=== PATIENT | female | born 1960 | race Caucasian/White ===

== ENCOUNTER → 2023-05-13 09:09 | Outpatient (REF) | payer OTHER, SELFPAY | LOC: MRI 3T 09:09 | PROVIDERS: ATTENDING PHYSICIAN Physician Assistant; FAMILY PHYSICIAN Internal Medicine | DX: M25.511 Pain in right shoulder (principal) | CPT/HCPCS: 73221 ==

== ENCOUNTER → 2023-11-22 09:56 | Outpatient (REF) | payer OTHER, SELFPAY | LOC: RAD 09:56 | PROVIDERS: ATTENDING PHYSICIAN Physician Assistant; FAMILY PHYSICIAN Internal Medicine | DX: R10.11 Right upper quadrant pain (principal) | CPT/HCPCS: 76700 ==

== ENCOUNTER → 2023-12-10 06:28 | Day surgery (SDC) | payer OTHER, SELFPAY ==
[2023-12-10 10:57] LABS: COVID-19 Antigen Negative (Negative)
== END ==
LOC: GI 06:28
PROVIDERS: ATTENDING PHYSICIAN Internal Medicine Gastroenterology
DX: K20.90 Esophagitis, unspecified without bleeding (principal); K22.89 Other specified disease of esophagus; K44.9 Diaphragmatic hernia without obstruction or gangrene; K31.89 Other diseases of stomach and duodenum; R10.11 Right upper quadrant pain
CPT/HCPCS: 43239; 88305; 87811; 88342

== ENCOUNTER 2024-04-07 15:48 | Emergency (ER) | payer OTHER, SELFPAY ==
[2024-04-07 15:50] VITALS: BP 136/98
[2024-04-07 16:13] LABS: Hematocrit 43.1 % (37.0-47.0); Hemoglobin 14.7 g/dL (12.0-16.0); Mean Corp Hgb Conc. 34.1 g/dL (33.0-37.0); Mean Corpuscular Hgb 31.6 pg (27.0-31.0); Mean Corpuscular Volume 92.7 fL (81.0-99.0); Mean Platelet Volume 10.3 fL (7.4-10.4); Platelet Count 246 10^3/uL (130-400); Red Blood Cell Count 4.65 10^6/uL (4.20-5.40); Red Cell Dist. Width 12.7 % (11.5-14.5)
[2024-04-07 16:34] LABS: ALT (SGPT) 20 U/L (0-35); AST (SGOT) 32 U/L (14-36); Albumin 4.1 g/dl (3.5-5.0); Alkaline Phosphatase 65 U/L (38-126); Blood Urea Nitrogen 15 mg/dl (7-17); Calcium 8.8 mg/dl (8.4-10.2); Carbon Dioxide 29 mmol/L (22-30); Chloride 100 mmol/L (98-107); Glucose 109 mg/dl (70-99); Lipase 107 U/L (23-300); Potassium 4.1 mmol/L (3.5-5.1); Sodium 137 mmol/L (135-145); Total Bilirubin 0.5 mg/dl (0.2-1.3); Total Protein 6.6 g/dl (6.3-8.2); eGFR > 60.00
[2024-04-07 17:00] LABS: Absolute Neutrophils -Man Diff 2.6 10^3/uL (1.4-6.5); Atypical Lymphocytes 20 %; Band Neutrophils 0 % (0-3); Lymphocytes 24 % (20-51); Monocytes 12 % (2-9); Platelets Checked Yes; Segmented Neutrophils 44 % (42-75)
[2024-04-07 17:08] LABS: Normal RBC Morphology Yes; Total Cells Counted 100
--- NOTE | 2024-04-07 18:05 | ED.GENMED ---
History of Present Illness
General
Chief Complaint: Abdominal Pain
Source: patient
Exam Limitations: none
Time Seen by Provider: 04/07/24 17:40
Nursing documentation reviewed up to this point in time: agreed with
History of Present Illness
History of Present Illness:
63-year-old female with past medical history of GERD, migraines, chronic back pain on chronic opiates presents to the emergency department for evaluation of abdominal pain. Patient reports onset of symptoms last week�she says that Sunday she
started with 'the flu' she says she had 24 hours of abdominal discomfort associate with nausea, vomiting, diarrhea�all nonbloody. She says she had a subjective fever during this time as well. She says that the symptoms lasted for 24 hours and then
completely resolved with the exception of abdominal pain which has been persistent since then. She reports pain located in the right upper abdomen underneath her ribs. Worse with movement and palpation. Worse with eating. No relieving factors
noted. She again denies any associated vomiting or diarrhea since initial 24-hour period. She has not had additional fever since. She denies any urinary symptoms. She is postmenopausal. She has a history of prior and oophorectomy.
Past History
Past History
ED Past Medical History: Other (Migraines about once a month. States this headache is not as bad as some of the migraines she has had. This is not associated with n/v as typical migraine) and Other (fibromyalgia)
ED Past Surgical History: , Gynecological and Orthopedic
Social History
Tobacco: Non-smoker
Alcohol: None
Personal:
Living: with family
Employment: Employed
Family History
Family History: Early CAD
Review of Systems
Review of Systems
All Other Systems: ROS reviewed and negative except as documented in HPI and ROS
Constitutional: Reports fever (1 week ago, now resolved); Denies chills
Respiratory: Denies cough or trouble breathing
Cardiac: Denies chest pain
ABD/GI: Reports abdominal pain, nausea, vomiting and diarrhea
: Denies dysuria, frequency or bleeding
Neurological: Denies headache
Phy Exam
Physical Exam
Physical Exam:
General: Awake, alert, oriented x3; no acute distress
Head: Normocephalic, atraumatic
Eyes: Conjunctiva normal, sclera anicteric
Throat: Airway intact, dry mucous membrane
Neck: Trachea midline
Lungs: Clear to auscultation bilaterally, no wheezing, rales, rhonchi
Heart: Regular rate and rhythm, no murmurs, gallops, or rubs
Abd: Soft, non distended, tender to palpation of the right upper quadrant with positive Thomason sign, no palpable hepatosplenomegaly
Back: No CVA tenderness
Neuro: No gross deficit
Extremities: Warm and well-perfused
Scores
Heart Failure Risk
Heart Failure Risk Score: Not Applicable
Heart Score for Chest Pain Patients
STEMI patient?: Not applicable
Withdrawal Assessment of Alcohol
Withdrawal Assessment Completed?: Not applicable
Course
Orders/Labs/Results
Orders:
Orders
04/07/24 15:56
Complete Blood Count/With Diff Urgent
Comprehensive Metabolic Panel Urgent
Lipase Urgent
Manual Differential Urgent
04/07/24 17:53
US Abdomen Complete/Upper Urgent
Comment:
Reason For Exam: RUQ pain and tenderness
04/07/24 17:54
Morphine Sulfate 4 mg IV NOW STA
04/07/24 18:03
COVID-19 Antigen Urgent
Source: Nasal Swab
Influenza A+B Rapid Molecular Urgent
RICK Source: Nasal Swab
Specimen Description:
04/07/24 18:08
Electrocardiogram (*1) Urgent
Reason for Study: Abdominal Pain
EKG- Treatment ONCE
04/07/24 18:36
Ondansetron Injectable [Zofran] 4 mg IV NOW STA
04/07/24 18:37
Ondansetron Injectable [Zofran] 4 mg .ROUTE .STK-MED ONE
04/07/24 19:40
CT Abd/pelvis W Iv Cont Urgent
Comment:
Reason For Exam: right upper abd pain/flank pain and tenderness
04/07/24 20:53
Urinalysis Reflex To Culture Urgent
Date Specimen was Collected: 04/07/24
Time Specimen was Collected: 20:42
04/07/24 21:52
Ketorolac [Toradol] 15 mg IV NOW STA
04/07/24 22:05
Pantoprazole [Protonix IV] 40 mg IV NOW STA
Sucralfate Suspension [Carafate Suspension] 1 gm PO NOW STA
Abnormal Lab Results
04/07/24 04/07/24
15:56 20:53
MCH 31.6 H pg
(27.0-31.0)
Monocytes (Manual) 12 H %
(2-9)
Glucose 109 H mg/dl
(70-99)
Urine Ketones 2+ A
(Negative)
04/07/24 15:56
04/07/24 15:56
Vital Signs
Initial and Last Documented VS:
Initial Vital Signs
Temp Pulse Resp BP Pulse Ox
36.8 C 96 16 136/98 97
04/07/24 15:50 04/07/24 15:50 04/07/24 15:50 04/07/24 15:50 04/07/24 15:50
Last Documented Vital Signs
Temp Pulse Resp BP Pulse Ox
36.8 C 96 16 112/67 99
04/07/24 15:50 04/07/24 15:50 04/07/24 15:50 04/07/24 20:14 04/07/24 20:15
MDM/Problems Addressed
Differential Diagnosis Includes:
Cholelithiasis, cholecystitis, enteritis, PUD, pancreatitis; PE, lower lobe pneumonia considered less likely with no respiratory complaints and clear lungs
MDM/Problems Addressed:
63-year-old female presents for evaluation of right upper quadrant abdominal pain that started after 24-hour period of nausea/vomiting/diarrhea. Vitals and exam as above. Labs sent off including a CBC and CMP in triage�no clinically significant
abnormalities. Notably her LFTs and lipase are normal. Will swab for COVID and flu. Check upper abdominal ultrasound. Check urinalysis. Treat pain. Provide fluids. Reassess after the above.
COVID and flu negative. Abdominal ultrasound shows some gallbladder sludge but no cholelithiasis no signs of cholecystitis. Patient still having pain and tenderness we will proceed with a CT abdomen pelvis. Continue to monitor.
CT reviewed and shows no acute pathology to explain patient's symptoms. She appears comfortable on clinical reassessment�at this point low suspicion for emergent pathology. Possible symptoms are from gastritis or PUD. I think she is stable for
discharge at this point. Will start on PPI and Carafate. Message sent to gastroenterology for close follow-up. Patient is very comfortable with this plan. We spoke about return precautions, all questions answered.
*Radiology
Radiology exam reviewed: radiology read reviewed
*Pulse Oximetry
Patient hypoxic: no
*Critical Care Note
Total Time (30-74mins, 75-104mins- exclusive of procedures): Not Applicable
Data Reviewed
Review of Other/Old Records Reveals: Labs, Records and Testing (Prior endoscopy results reviewed)
Source: patient
ED Attending Note
-
Portions of this chart may have been created with voice recognition software.� Occasional wrong word or��sound alike� substitutions may have occurred due to the inherent limitations of voice recognition software.
Discharge Plan
Departure
Patient Disposition: Home (Routine Discharge)
Date of Disposition: 04/07/24
Time of Disposition: 22:05
Patient with high blood pressure during this ER visit?: Yes
Discharge Problem:
Abdominal pain
Instructions: Abdominal Pain
Prescriptions:
New
pantoprazole 40 mg tablet,delayed release (DR/EC)
40 mg PO DAILY Qty: 30 0RF
sucralfate [Carafate] 100 mg/mL suspension
10 ml PO ACHS Qty: 400 0RF
No Action
hkcqkomggo-rcrboxuaeldte-apcm 1 TAB tablet
2 tab PO Q6HPRN PRN (Reason: migraines)
sulfamethoxazole-trimethoprim 1 TABLET tablet
1 tab PO BID
flurbiprofen 100 MG tablet
100 mg PO BIDPRN PRN (Reason: pain)
pregabalin 50 MG capsule
100 mg PO HS
pregabalin 50 MG capsule
50 mg PO DAILY
acetaminophen [Tylenol 8 Hour] 650 MG tablet extended release
650 mg PO Q8HPRN PRN (Reason: MILD PAIN)
cyclobenzaprine 10 MG tablet
10 mg PO Q8 PRN (Reason: spasm) Qty: 14 0RF
Rx Instructions:
As needed for spasm
oxycodone-acetaminophen 5 MG/325 MG tablet
1 tab PO Q6H PRN (Reason: pain) Qty: 14 0RF
Rx Instructions:
as needed for pain
Referrals:
Jorge L Silva DO [Family Provider] -
Christianne Barahona MD [Active] - Call in 1-3 days for appt
Activity Restrictions/Additional Instructions:
Thank you for visiting the Emergency Department at [facility].
1. Please schedule a follow up appointment as directed. Call first thing tomorrow morning to make an appointment.
2. If indicated, please take your medications as instructed and indicated on discharge paperwork.
3. If any of your symptoms do not improve, or persist, or become more severe within 6-12 hours, please return to the emergency department for further care.
4. Please return to the emergency department if you develop a headache, neck pain/stiffness, fever greater than 100.4F, chest pain, shortness of breath, persistent nausea, vomiting, slurred speech, difficulty walking, numbness/tingling, weakness,
signs of infection or any other symptoms that are worrisome to you.
Please call [phone] if you have any questions.
Interventions
Interventions:
*Risk Screen - Suicide Last Done: 04/07/24 15:53
*General Assessment Last Done: 04/07/24 18:00
*Neglect/Abuse Screening Last Done: 04/07/24 15:53
ED- Fall Risk Assessment Last Done: 04/07/24 20:12
*ED COVID-19 Vaccine History Last Done: 04/07/24 18:00
SQ-Pfnoum-Ckqmmxnlqa Assessment Last Done: 04/07/24 18:00
Discharge Date and Time
Print Language: FRISIAN
[2024-04-07] MEDS: ZOFRAN 4 MG IV (18:39)
[2024-04-07 18:42] VITALS: BP 127/83
[2024-04-07 18:42] LABS: COVID-19 Antigen Negative (Negative)
[2024-04-07 19:00] VITALS: BP 118/60
[2024-04-07 20:12] VITALS: BMI 24.8
[2024-04-07 20:14] VITALS: BP 112/67
[2024-04-07 21:12] LABS: Urine Albumin Trace (Neg - Trace); Urine Bilirubin Negative (Negative); Urine Character Clear (Clear); Urine Color Yellow; Urine Glucose Negative (Negative); Urine Ketone 2+ (Negative); Urine Leukocyte Negative (Negative); Urine Nitrite Negative (Negative); Urine Occult Blood Negative (Negative); Urine Urobilinogen Negative (Neg - 1+)
[2024-04-07] MEDS: TORADOL 15 MG IV (21:56)
[2024-04-07] MEDS: PROTONIX IV 40 MG IV (22:14)
[2024-04-07] MEDS: CARAFATE SUSPENSION 1 GM PO (22:14)
[2024-04-07 22:26] VITALS: BP 127/82
[2024-04-07 23:14] VITALS: BP 127/82
== END 2024-04-07 23:15 | disposition home or self-care (01) ==
LOC: EMR 15:48
PROVIDERS: Student in an Organized Health Care Education/Training Program; EMERGENCY PHYSICIAN Emergency Medicine; FAMILY PHYSICIAN Internal Medicine
DX: R10.11 Right upper quadrant pain (principal); K82.8 Other specified diseases of gallbladder; G89.29 Other chronic pain; Z79.891 Long term (current) use of opiate analgesic; K21.9 Gastro-esophageal reflux disease without esophagitis
CPT/HCPCS: 99284; 96374; 96375; 74177; 76700; 80053; 81003; 83690; 85025; 87502; 87811; 93005; Q9967

== ENCOUNTER → 2024-04-17 07:51 | Outpatient (REF) | payer OTHER, SELFPAY | LOC: RAD 07:51 | PROVIDERS: ATTENDING PHYSICIAN Internal Medicine Gastroenterology; FAMILY PHYSICIAN Internal Medicine | DX: R10.11 Right upper quadrant pain (principal) | CPT/HCPCS: 78226; A9537 ==

== ENCOUNTER → 2024-09-22 17:49 | Outpatient (REF) | payer OTHER, SELFPAY | LOC: WDC 17:49 | PROVIDERS: ATTENDING PHYSICIAN Obstetrics & Gynecology Gynecology; FAMILY PHYSICIAN Internal Medicine | DX: Z12.31 Encounter for screening mammogram for malignant neoplasm of breast (principal) | CPT/HCPCS: 77063; 77067 ==

== ENCOUNTER → 2025-01-08 08:05 | Outpatient (REF) | payer OTHER, SELFPAY | LOC: RAD 08:05 | PROVIDERS: ATTENDING PHYSICIAN Internal Medicine; REFERRING PHYSICIAN Internal Medicine Gastroenterology | DX: R10.84 Generalized abdominal pain (principal) | CPT/HCPCS: 76700 ==